=== PATIENT | male | born 1945 | race Caucasian/White ===

== ENCOUNTER 2019-11-03 17:01 | Inpatient (IN) ==
[2019-11-03 17:03] LABS: BLOOD TYPE ARTERIAL; METHB 1.7 % (0.0-1.5); O2(CT) 17.8 mL/dL (15.0-23.0); O2HB 90.5 % (95.0-99.0); PO2(98.6) 107 mmHg (60-100); SAMPLE BLOOD; SAO2 97.3 % (95.0-100.0); THB 13.9 g/dL (11.5-17.4)
[2019-11-03 17:18] LABS: BASO% 0.6 % (0.0-0.8); EOS# 0.61 X1000 (0.0-0.7); EOS% 3.4 % (0.0-10.0); HEMATOCRIT 43.9 % (42.0-52.0); IMM GRAN# 0.04 X1000 (0.0-0.04); IMM GRAN% 0.2 % (0.0-0.5); LYMPH# 6.07 X1000 (1.2-3.4); LYMPH% 33.4 % (20.5-51.1); MCH 28.1 PG (27-31); MCHC 29.6 g/dL (33-37); MCV 94.8 FL (81-99); MONO# 1.96 X1000 (0.11-0.59); MONO% 10.8 % (1.7-9.3); MPV 10.4 FL (7.4-10.4); NEUT# 9.37 X1000 (1.4-6.5); NEUT% 51.6 % (42.2-75.2); PLT 269 X1000 (130-400); RBC 4.63 XMIL (4.7-6.1); RDW 15.2 % (11.5-14.5); WBC 18.15 X1000 (4.8-10.8)
[2019-11-03 17:29] LABS: pH(98.6) 6.87 (7.35-7.45)
[2019-11-03 17:31] LABS: INR 0.98; PROTIME 13.5 Seconds (11.0-16.0)
[2019-11-03 17:31] LABS: PCO2(98.6) > 150 mmHg (35-45)
[2019-11-03 17:32] LABS: PTT 36.7 Seconds (22.3-41.8)
[2019-11-03 17:33] LABS: AGAP 12; ALBUMIN 4.2 g/dL (3.5-5.0); ALKALINE PHOSPHATASE 90 U/L (32-122); BUN 13 mg/dL (8-22); CHLORIDE 100 mmol/L (98-107); CK PROFILE 77 U/L (24-204); COSMO 289; CREATININE 0.9 mg/dL (0.7-1.2); ESTIMATED GFR > 60; GLUCOSE 274 mg/dL (70-104); GOT 47 U/L (10-34); GPT 25 U/L (10-44); SODIUM 140 mmol/L (136-145); TCO2 29 mmol/L (25-35); TOTAL PROTEIN 6.4 g/dL (6.3-8.3)
[2019-11-03 17:33] LABS: MODALITY RESUSC BAG
[2019-11-03 17:34] LABS: ALLEN TEST NO
[2019-11-03 17:36] LABS: URINE SOURCE CATH
[2019-11-03] MEDS ORDERED: NS 1,000 ML IV ONE ×2 (17:36→17:40)
--- NOTE | 2019-11-03 17:44 | Diag Imaging Result Doc PS360 ---
EXAM: CHEST-1 VIEW 11/03/2019 HISTORY: SOB TECHNIQUE: AP chest portable semierect at 1718 COMMENT: There are ill-defined opacities in both lower lobes which were not present on 10/14/2018. The heart size and pulmonary vascularity are within normal limits. IMPRESSION: Bibasilar pneumonia and/or pulmonary edema. Electronically signed by Weston Mitchell 11/03/2019 5:41 PM
[2019-11-03 17:51] LABS: BILIRUBIN URINE NEGATIVE (NEGATIVE); BLOOD URINE MODERATE (NEGATIVE); COLOR YELLOW; GLUCOSE URINE TRACE mg/dL (NEGATIVE); KETONE URINE TRACE mg/dL (NEGATIVE); TURBIDITY URINE HAZY (CLEAR)
[2019-11-03 17:52] LABS: LEUKOCYTES URINE NEGATIVE (NEGATIVE); NITRITE URINE NEGATIVE (NEGATIVE); PROTEIN URINE 200 mg/dL (NEGATIVE); UROBILINOGEN URINE NORMAL (NORMAL)
[2019-11-03] MEDS ORDERED: LEVAQUIN 750 MG/D5W 750 MG/150 ML IVPB IV ONE (17:53)
[2019-11-03 17:56] LABS: UR EPITHELIAL CELLS >10 /HPF (<10); URINE BACTERIA 2+ /HPF; URINE RBC 20-40 /HPF (<10)
[2019-11-03] MEDS ORDERED: VANCOMYCIN IV PER PHARMACY MISC SCH (18:00)
[2019-11-03] MEDS ORDERED: VANCOMYCIN 1 GM/NS 1 GM/250 ML IVPB IV ONE ×2 (18:00→20:00)
--- NOTE | 2019-11-03 18:40 | PROVIDER DOCUMENTATION ---
This chart was entered by Magali Jacobsen Scribe, acting as scribe for Loco Rodas MD. HPI-Respiratory General - General Chief Complaint: Shortness of Breath Stated Complaint: dyspnea Time Seen by Provider: 11/03/19 17:10 Source: EMS Allergies/Adverse Reactions: Patient Allergies Allergy/AdvReac Type Severity Reaction Status Date / Time No Known Allergies Allergy Verified 11/03/19 17:51 Home Medications: Home Medication List Medication Instructions Recorded Confirmed Last Taken Type Alprazolam [Xanax] 1 mg PO 4XDAY PRN PRN 08/24/15 11/05/19 11/03/19 12:00 History Aspirin [Aspirin EC] 81 mg PO DAILY 08/24/15 11/05/19 11/03/19 09:00 History Fluoxetine HCl [Prozac] 20 mg PO DAILY 08/24/15 11/05/19 11/03/19 09:00 History Lisinopril [Zestril] 2.5 mg PO DAILY 10/10/18 11/05/19 11/03/19 09:00 History Ipratropium/Albuterol INH 1 puff INH RTQ6H #1 inhaler 10/14/18 11/05/19 11/03/19 09:00 Rx [Combivent Respimat Inhaler] Albuterol 2.5MG/Ipratrop 0.5MG 3 ml INH Q4-6H PRN PRN #120 neb 11/05/19 Unknown Rx [Duoneb] Carvedilol [Coreg] 3.125 mg PO Q12HR #120 tab 11/05/19 Unknown Rx Doxycycline 100 mg PO BID #14 tab 11/05/19 Unknown Rx LISINOpril [Prinivil] 2.5 mg PO DAILY #120 tab 11/05/19 Unknown Rx Levofloxacin 500 mg PO DAILY #7 tab 11/05/19 Unknown Rx Prednisone 20 mg PO DAILY #5 tab 11/05/19 Unknown Rx Spironolactone 25 mg PO DAILY #120 tab 11/05/19 Unknown Rx - History of Present Illness-Resp Nature of Presenting Problem: 74 y/o male presents to ED with confusion and SOB. EMS reports he was found down in his home. Pt is alert and in respiratory distress. Quality of Pain: reports: none Severity in ED: reports: moderate Onset/Duration: reports: unsure Timing: reports: still present Context: reports: other Exposure: reports: unknown cause Cough Quality/Degree: reports: no cough Episode Frequency: other Current Respiratory Medication Therapy: Initiated see nurses note Modifying Factors: improves with: nothing Associated Symptoms: reports: shortness of breath, short of breath, other (confusion) Similar Symptoms Previously?: No Recently seen or treated by another doctor?: No Review of Systems - Adult - REVIEW OF SYSTEMS - ADULT Constitutional: reports: no symptoms reported Eyes: reports: no symptoms reported Ears, Nose, Mouth & Throat: reports: no symptoms reported Cardiovascular: reports: no symptoms reported Respiratory: reports: shortness of breath. denies: cough Gastrointestinal: reports: no symptoms reported Genitourinary: reports: no symptoms reported Musculoskeletal: reports: no symptoms reported Integumentary: reports: no symptoms reported Neurological: reports: other (confusion). denies: seizure Psychiatric: reports: no symptoms reported Endocrine: reports: no symptoms reported Hematologic/Lymphatic: reports: no symptoms reported Allergic/Immunologic: reports: no symptoms reported All Other Systems: Reviewed and Negative Past History - Adult - PAST MEDICAL HISTORY-ADULT Review of Records: reports: Old Records Reviewed, Nursing Assessment Review, Medications Reviewed Cardiovascular: reports: cardiac disease, HTN, hyperlipidemia Respiratory: reports: COPD Gastrointestinal: reports: GERD Musculoskeletal: reports: cancer (skin) Physical Exam-General - PHYSICAL EXAM-ADULT Initial Vital Signs Reviewed: Yes - CONSTITUTIONAL General Appearance: alert, slow to respond, other (confused; altered) - EYES Eyes: PERRL/EOMI, pink conjunctivae - HEAD, EARS, NOSE, MOUTH & THROAT HENMT: normocephalic/atraumatic, moist mucous membranes - NECK Neck: full range of motion - RESPIRATORY Respiratory: respiratory distress, decreased breath sounds, wheezing - CARDIOVASCULAR Cardiovascular: tachycardia - GASTROINTESTINAL (ABDOMEN) Abdominal Exam: normal bowel sounds, non tender, soft - MUSCULOSKELETAL Back Exam: normal inspection, no CVA tenderness, no vertebral tenderness Extremity: normal range of motion, non-tender - SKIN Integumentary: normal color, warm/dry - NEUROLOGIC Neurologic: other (confused; altered) - PSYCHIATRIC Psych/Mental Status: other (confused; altered) Progress - PLAN OF CARE/RESULTS Progress/Plan/Lab Results: Orders Category Date Time Status Admit - [facility] Routine AdmDCTranf 11/03/19 18:50 Active Activity - Up with Assistance ORDERED Care 11/05/19 08:00 Active Apply Mechanical Device [QM] ORDERED Care 11/03/19 18:50 Active Cardiac Monitoring DIRECTED Care 11/03/19 17:01 Completed DVT/PE Risk Assess/Protocol [QM] ORDERED Care 11/03/19 18:50 Completed FSBS/Accucheck Result AC + HS Care 11/03/19 18:50 Active [place] Cath Insertion ORDERED Care 11/03/19 17:02 Completed IV Insertion ORDERED Care 11/03/19 17:01 Completed IV Insertion ORDERED Care 11/03/19 18:49 Completed Intake and Output-Strict ORDERED Care 11/03/19 18:50 Active Notify MD of + Sepsis Screen NOW Care 11/03/19 17:01 Completed Notify Physician As Ordered Care 11/03/19 17:01 Active Saline Loc DIRECTED Care 11/03/19 18:50 Completed Turn, Cough and Deep Breathe Q4HR.AWAKE Care 11/03/19 18:50 Active Vital Signs Order Q 8-HR ASSESS Care 11/03/19 18:50 Completed Z-Document. for Tele Applied ORDERED Care 11/03/19 18:52 Completed NPO Diet 11/03/19 18:51 Completed CHEST-1 VIEW [RAD] Stat Exams 11/03/19 17:01 Completed ABG [RESP] Routine Lab 11/03/19 16:39 Completed ABG [RESP] Routine Lab 11/03/19 18:00 Ordered BLOOD CULTURE [BLDCUL] Stat Lab 11/03/19 17:15 Completed CBC WITH DIFF [HEME] Stat Lab 11/03/19 17:00 Completed CBC WITH NO DIFF [HEME] Routine Lab 11/04/19 04:00 Completed CK PROFILE [SP CHEM] Routine Lab 11/03/19 21:53 Completed CK PROFILE [SP CHEM] Stat Lab 11/03/19 17:00 Completed COMPREHENSIVE METABOLIC PANEL [CHEM] Routine Lab 11/04/19 04:00 Completed COMPREHENSIVE METABOLIC PANEL [CHEM] Stat Lab 11/03/19 17:00 Completed LACTATE, PLASMA [CHEM] Lab 11/03/19 20:15 Completed LACTATE, PLASMA [CHEM] Lab 11/03/19 21:53 Completed LACTATE, PLASMA [CHEM] Q3H Lab 11/03/19 17:00 Completed PROTIME WITH INR [COAG] Stat Lab 11/03/19 17:00 Completed PTT [COAG] Stat Lab 11/03/19 17:00 Completed TROPONIN T Stat Lab 11/03/19 17:00 Completed URINALYSIS W/POSS RFLX CULT [URINALYSIS] Stat Lab 11/03/19 17:35 Completed URINE CULTURE [RM] Routine Lab 11/03/19 17:35 Completed 0.9% Sodium Chloride Inj [Ns] 1,000 ml Med 11/03/19 17:36 Discontinued IV 999 mls/hr 0.9% Sodium Chloride Inj [Ns] 1,000 ml Med 11/03/19 17:40 Discontinued IV 999 mls/hr Levofloxacin 750 mg/D5w [Levaquin 750 mg/D5w] Med 11/03/19 17:53 Discontinued 750 mg in 150 ml IV NOW Levofloxacin [Levaquin] 750 mg Med 11/04/19 18:00 Discontinued 0.9% Sodium Chloride Inj [Ns] 150 ml IV Q24H Pharmacy Order [Vancomycin IV Per Pharmacy] Med 11/03/19 18:00 Discontinued 1 each MISC DIRECTED Vancomycin 1 gm/Ns Med 11/03/19 18:00 Discontinued 1 gm in 250 ml IV ONCE Vancomycin 1 gm/Ns Med 11/03/19 20:00 Discontinued 1 gm in 250 ml IV ONCE Vancomycin 1.25 gm Med 11/04/19 10:00 Discontinued 0.9% Sodium Chloride Inj [Ns] 250 ml IV Q18H BIPAP Stat Ot 11/03/19 17:34 Active Incentive Spirometer Q4HR.AWAKE Ot 11/03/19 21:00 Completed Incentive Spirometer Q4HR.AWAKE Ot 11/04/19 01:00 Completed Incentive Spirometer Q4HR.AWAKE Ot 11/04/19 05:00 Completed Incentive Spirometer Q4HR.AWAKE Ot 11/04/19 09:00 Completed Incentive Spirometer Q4HR.AWAKE Ot 11/04/19 13:00 Completed Incentive Spirometer Q4HR.AWAKE Ot 11/04/19 17:00 Completed Oxygen Device Stat Ot 11/03/19 17:01 Completed Peak Flow BID Ot 11/03/19 21:00 Completed Peak Flow BID Ot 11/04/19 09:00 Completed Telemetry [OM.EQ] Routine Ot 12/14/19 18:50 Active Transfer/Admit Order [TRANSFER] Routine Transfer 11/03/19 18:53 Completed Result Diagrams: 11/04/19 04:00 11/05/19 04:13 - CHANGE OF SHIFT REPORT (ED Provider) 1 Report Given and Care Transferred to:: [facility] lab meds placement bipap evaluation Departure - Departure Date of Disposition Decision: 11/04/19 Time of Disposition Decision: 00:30 DIAGNOSIS: Confusion, Respiratory distress Disposition: ADMITTED INPATIENT 09 Certified Medical Emergency: Emergent Condition: Serious - Critical Care Note This patient required my direct & personal management of CC.: No Attestation - Physician/ [place] Attestation Patient care was provided by Advanced Practice Provider:: No The physician spent face to face time with patient:: Yes Advanced Practice Provider documentation review:: Supervising physician onsite and consulted in the evaluation and care of this patient. The physician did have a face to face encounter with the patient. This chart was documented by the indicated scribe, (Magali Jacobsen Scribe) and accurately reflects the services I performed and decisions made by me, Loco Rodas MD, as attested by the provider's signature.
[2019-11-03 22:20] LABS: BE 3.5 mmoll (-2.0-2.0); BLOOD TYPE VENOUS; HCO3-(ACT) 26.9 mmoll (22-27); PO2(98.6) 30 mmHg (30-55); SAMPLE BLOOD; SAO2 66.7 % (40.0-85.0); pH(98.6) 7.29 (7.32-7.43)
[2019-11-03 22:21] LABS: PCO2(98.6) 66 mmHg (40-60)
[2019-11-04 04:48] LABS: AGAP 12; ALB/GLOB RATIO 1.9; ALBUMIN 3.7 g/dL (3.5-5.0); ALKALINE PHOSPHATASE 79 U/L (32-122); BUN 15 mg/dL (8-22); CALCIUM 8.6 mg/dL (8.8-10.2); CHLORIDE 102 mmol/L (98-107); COSMO 282; ESTIMATED GFR > 60; GLUCOSE 88 mg/dL (70-104); GOT 36 U/L (10-34); GPT 31 U/L (10-44); POTASSIUM 4.6 mmol/L (3.5-5.1); SODIUM 141 mmol/L (136-145); TCO2 27 mmol/L (25-35); TOTAL BILIRUBIN 0.38 mg/dL (0.20-1.00); TOTAL PROTEIN 5.6 g/dL (6.3-8.3)
--- NOTE | 2019-11-04 04:53 | HISTORY AND PHYSICAL ---
CHIEF COMPLAINT: Shortness of breath. HISTORY OF PRESENT ILLNESS: The patient is an elderly gentleman who presented to the hospital after having been found down confused at home. He was brought to the ER, found to be in severe respiratory distress and was significantly acidotic with a pCO2 elevated around 150. He was initially placed on BiPAP and has actually started improving very well. ALLERGIES: No known drug allergies. MEDICATIONS: Do not have an accurate medication list. He has a history of taking pain pills, Xanax and Cardizem. REVIEW OF SYSTEMS: As noted above. Positive increased work of breathing, cough, congestion, shortness of breath. Denies any recent illness. The majority of the history is per the family. PAST MEDICAL HISTORY: Significant for known coronary artery disease, hypertension, hyperlipidemia, COPD, history of skin cancer, chronic reflux. FAMILY HISTORY: Noncontributory. PHYSICAL EXAMINATION: VITAL SIGNS: Reviewed. Temperature 97.8 degrees, pulse 132, respiratory 26 and moderately labored, currently on BiPAP. HEENT: Normocephalic. NECK: Supple. CARDIOVASCULAR: Tachycardia. No appreciable murmurs. CHEST: Marked decreased breath sounds bilaterally. Positive wheezing. ABDOMEN: Soft, obese, nondistended. EXTREMITIES: Moves all extremities. NEUROLOGIC: No changes although unable to completely assess. LABORATORIES: WBCs 18, hemoglobin and hematocrit 13 and 43. Glucose 274, potassium 5.0. ASSESSMENT: 1. Acute respiratory failure, currently on BiPAP. 2. Leukocytosis. 3. Hyperglycemia in a patient with no previous history of diabetes. 4. Hypertension. 5. Supraventricular tachycardia. 6. Sepsis. PLAN: We are going to admit patient to the hospital, place him on vancomycin, Zosyn, breathing treatments, oxygen. We use sliding scale insulin as needed. Continue BiPAP. We are going to transfer him to [facility] when bed is available. cc: Clark Mccarthy MD
[2019-11-04 06:08] LABS: HEMATOCRIT 37.7 % (42.0-52.0); HEMOGLOBIN 11.6 g/dL (14.0-18.0); MCH 28.9 PG (27-31); MCHC 30.8 g/dL (33-37); MCV 93.8 FL (81-99); MPV 10.9 FL (7.4-10.4); RBC 4.02 XMIL (4.7-6.1); RDW 15.6 % (11.5-14.5); WBC 9.62 X1000 (4.8-10.8)
[2019-11-04] MEDS ORDERED: VANCOMYCIN 1.25 GM in NS 250 ML IV SCH (10:00)
[2019-11-04] MEDS: VANCOMYCIN 1.25 GM in NS 250 ML IV SCH (10:04)
[2019-11-04] MEDS ORDERED: DUONEB (A & A) INH PRN (10:41)
[2019-11-04] MEDS ORDERED: NS 1,000 ML IV SCH (10:45)
[2019-11-04] MEDS: PRINIVIL PO SCH (11:20)
[2019-11-04] MEDS: SOLU-MEDROL IV SCH ×2 (11:20→17:48)
--- NOTE | 2019-11-04 11:40 | PROGRESS NOTE ---
DATE: 11/04/2019 SUBJECTIVE: This morning, Mr. Benitez refers to be doing well. He wants the BiPAP off, and he said he would actually be a lot better at home. OBJECTIVE: Vital signs: Blood pressure is 139/81, pulse of 96, respirations 20, temperature is 99.1. Patient is saturating 98% on the BiPAP. General: Mr. Benitez is a 74-year-old elderly male. He is in bed, on BiPAP. HEENT: Mucosa is slightly dry. Anicteric. Acyanotic. Neck: Supple. Chest: Air entry is bilaterally reduced. I did not hear any crackles. No crepitations. No rhonchi. No wheezing. Cardiovascular: Regular rate and rhythm. No murmurs. Abdomen: Soft. Extremities: No pedal edema. CATERING SOUS CHEF: Patient is awake, alert, and oriented. LABORATORY DATA: WBC is down to 9.62, hemoglobin is 11.6, platelet count of 194,000. ABGs for most part are unremarkable. Troponins have been trended twice, unremarkable. ABGs showed pH of 6.87, PO2 of 107, carboxyhemoglobin of 5.40. A chest x-ray did show bibasilar pneumonia and/or pulmonary edema. ASSESSMENT: 1. Acute hypercarbic respiratory failure. 2. Chronic obstructive pulmonary disease in acute exacerbation. 3. History of congestive heart failure, ejection fraction of 35% to 40%. 4. History of coronary artery disease. 5. Status post pacemaker. 6. 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 The patient follows up with Dr. Henderson in [place]. 7. History of paroxysmal atrial fibrillation documented in his last admission on 10/14/2018. 8. Clinical volume depletion. For now, the patient is currently on IV antibiotics for the severe COPD exacerbation and suspected of bibasilar atelectasis/pneumonia. We have added steroids for the COPD exacerbation and will get Pulmonary Medicine to evaluate him. I understand Mr. Benitez was actually altered when he presented to the emergency room in [place]. Mentation is improved, and he actually wants to be discharged. I think we will wait for Pulmonary Medicine to evaluate him. I also think that he is going to need at least a day or 2 of acute care management before he is discharged. We will wait for Pulmonary Medicine evaluation today for further guidance in his management. cc: MD Clark Claudio MD MTDD
[2019-11-04] MEDS: DUONEB (A & A) INH SCH ×4 (15:50→23:35)
--- NOTE | 2019-11-04 17:58 | EKG Report ---
Test Performed on : 11/04/2019 5:20:08 PM Test Reason : Afib Blood Pressure : / mmHG Vent. Rate : 094 BPM Atrial Rate : 094 BPM P-R Int : 144 ms QRS Dur : 090 ms QT Int : 318 ms P-R-T Axes : 080 046 -78 degrees QTc Int : 397 ms Normal sinus rhythm. Septal infarct (cited on or before 13-OCT-2018) Abnormal ECG When compared with ECG of 13-OCT-2018 19:30, Sinus rhythm. has replaced Atrial fibrillation. Vent. rate has decreased BY 81 BPM Non-specific change in ST segment in Anterior leads Nonspecific T wave abnormality, worse in Inferior leads Nonspecific T wave abnormality now evident in Anterior leads Confirmed by Shiloh MARSHALL, Elie ([id number]) on 11/05/2019 8:19:30 AM
[2019-11-04] MEDS ORDERED: LEVAQUIN 750 MG in NS 150 ML IV SCH ×4 (18:00)
[2019-11-04] MEDS ORDERED: LASIX IV ONE (18:20)
[2019-11-04] MEDS: COREG PO SCH (20:36)
--- NOTE | 2019-11-05 01:36 | PULMONOLOGY CONSULTATION ---
DATE: 11/04/2019 REQUESTING PHYSICIAN: Dr. Mcclain. REASON FOR CONSULTATION: COPD with acute hypercarbic respiratory failure. HISTORY OF PRESENT ILLNESS: Mr. Benitez is a 74-year-old white male with severe COPD, chronic hypoxemic respiratory failure, chronic hypercapnic respiratory failure with ongoing tobacco use, who was last seen by this practitioner in October when he required intubation for intubation and mechanical ventilation. The patient was brought to the emergency room poorly responsive last evening with a pCO2 of 150. He was initiated on BiPAP with significant improvement. Once he became arousable to alert, he refused to wear the BiPAP. He has subsequently refused all additional arterial blood gases. He is now awake and alert. He reports he has to have pain medicines for chronic back pain. PAST MEDICAL HISTORY: 1. Severe COPD with ongoing tobacco use. 2. Chronic pain syndrome with chronic narcotic use. 3. Coronary artery disease status post stent placement. 4. Status post partial colon resection. 5. Status post pacemaker placement. 6. History of gastroesophageal reflux disease. 7. History of skin cancer. SOCIAL HISTORY: Continued tobacco use. He denies alcohol use. FAMILY HISTORY: Noncontributory to current presentation. REVIEW OF SYSTEMS: Noncontributory. He reports he feels back to his baseline. OBJECTIVE: Vital Signs: The patient has been afebrile for the last 24 hours. Blood pressure 149/93, heart rate 95, respiratory rate 20, oxygen saturation 95%. HEENT: Pupils are equal and reactive. Oropharynx is clear. Neck: Supple. Chest: Reveals prolonged expiratory phase, but no wheezing or rhonchi. Cardiac: S1-S2. Abdomen: Scaphoid and soft. Extremities: Reveal trace edema. LABORATORIES: Venous blood gas obtained last evening revealed a pH of 7.29, pCO2 of 66, PO2 of 30. His arterial blood gas yesterday afternoon revealed a pH of 6.87, pCO2 of greater than 150, and carboxyhemoglobin of 5.4. Chest x-ray reveals hyperinflation with mild increased markings in the lung bases. IMPRESSION: A 74-year-old with: 1. Acute hypoxemic respiratory failure on the background of chronic hypoxemic respiratory failure. 2. Acute hypercapnic respiratory failure on the background of chronic hypercapnic respiratory failure. 3. Mild pulmonary overload/pulmonary edema. 4. Ongoing tobacco use/nicotine addiction. 5. Chronic pain medication requirements/use. DISCUSSION: A 74-year-old with problems outlined above. The patient has had a rapid turnaround in 24 hours. With his presentation, I suspect that he has chronic CO2 retention and may have been pushed into further hypercapnic respiratory failure with pain medications. He will be very susceptible to pain medication and this will put him at risk for respiratory failure. He is not interested in smoking cessation and he is not interested in cutting back on his pain medications. RECOMMENDATIONS: 1. Continue current treatment regimen. 2. Encourage smoking cessation/discontinuation of tobacco. 3. Recommend weaning and discontinuing pain medications if possible. 4. Long-term prognosis is poor. cc: MD Clark Donato MD
[2019-11-05] MEDS: VANCOMYCIN 1.25 GM in NS 250 ML IV SCH ×2 (02:23→04:22)
[2019-11-05] MEDS: SOLU-MEDROL IV SCH (02:23)
[2019-11-05 05:39] LABS: AGAP 10; ALB/GLOB RATIO 1.9; ALBUMIN 3.8 g/dL (3.5-5.0); ALKALINE PHOSPHATASE 66 U/L (32-122); BUN 21 mg/dL (8-22); CALCIUM 8.6 mg/dL (8.8-10.2); CHLORIDE 104 mmol/L (98-107); COSMO 290; CREATININE 0.9 mg/dL (0.7-1.2); ESTIMATED GFR > 60; GLUCOSE 171 mg/dL (70-104); GOT 29 U/L (10-34); GPT 26 U/L (10-44); MAGNESIUM 1.7 mg/dL (1.5-2.7); PHOSPHORUS 1.9 mg/dL (2.7-4.5); POTASSIUM 4.2 mmol/L (3.5-5.1); SODIUM 142 mmol/L (136-145); TCO2 28 mmol/L (25-35); TOTAL BILIRUBIN 0.41 mg/dL (0.20-1.00); TOTAL PROTEIN 5.8 g/dL (6.3-8.3)
[2019-11-05] MEDS: DUONEB (A & A) INH SCH (07:44)
--- NOTE | 2019-11-05 07:46 | Diag Imaging Result Doc PS360 ---
EXAM: CHEST-PORTABLE INDICATION: abnormal exam TECHNIQUE: One view COMPARISON: 11/03/2019 FINDINGS: Ill-defined opacities at the lower lung zones bilaterally are approximately stable. No new consolidation is identified. Cardiac silhouette is stable. IMPRESSION: Essentially stable chest. Electronically signed by Grabiel Nava 11/05/2019 7:44 AM
[2019-11-05 07:49] VITALS: BP 142/89
[2019-11-05] MEDS: PRINIVIL PO SCH (08:40)
[2019-11-05] MEDS: COREG PO SCH (08:41)
--- NOTE | 2019-11-07 07:29 | DISCHARGE SUMMARY ---
ADMISSION DATE: 11/03/2019 DISCHARGE DATE: 11/05/2019 DISPOSITION: Home. FOLLOWUP: 1. Dr. Lopez. 2. Dr. Bowden. CONSULTATION DURING THIS ADMISSION: Pulmonary Medicine consulted. Patient was seen by Dr. Bowden. INVASIVE PROCEDURES DONE DURING THIS ADMISSION: None. IMAGING STUDIES OF SIGNIFICANCE: A chest x-ray initially showed bibasilar pneumonia and/or pulmonary edema. A repeat chest x-ray showed essentially stable findings. ADMISSION DIAGNOSES: 1. Acute respiratory failure. 2. Leukocytosis. 3. Hyperglycemia. 4. Hypertension. DIAGNOSIS AT THE TIME OF DISCHARGE: 1. Acute hypercarbic respiratory failure. 2. Severe chronic obstructive pulmonary disease with ongoing tobacco use, in exacerbation. 3. Chronic pain syndrome with chronic narcotic use. 4. History of congestive heart failure, ejection fraction of 35% to 40%. 5. History of coronary artery disease. 6. Status post pacemaker. 7. Dilated cardiomyopathy secondary to coronary artery disease. The patient follows up with Dr. Henderson in [place]. 8. History of paroxysmal atrial fibrillation. 9. Altered mental status on admission secondary to CO2 narcosis. PRESENTING COMPLAINT: Shortness of breath. HISTORY OF PRESENTING COMPLAINT: Mr. Benitez is a 74-year-old male who is known to have severe COPD, came to the emergency department because of shortness of breath and being found confused. Upon presentation, he was evaluated, found to have a pCO2 of 150. He was placed on a BiPAP and transferred to [facility] for higher level of care. He initially presented to [place]. HOSPITAL COURSE: Mr. Benitez improved remarkably with the BiPAP therapy. His mentation got completely cleared up. Unfortunately, he declined to wanting to do another ABG. He was started also on antibiotics, steroids and bronchodilation therapy. He did improve through the hospital course. He has been advised to quit smoking and also be extremely cautious with pain medication. He is not willing to do either of those practices. On the day of discharge, Mr. Benitez referred to be doing a lot better. Breathing has significantly improved, saturating well. We think he is in stable condition to be discharged. DISCHARGE PHYSICAL EXAMINATION: Vital signs: Vitals pressure is 142/89, pulse of 88, respirations 18, temperature 98 degrees. Respiratory: Ms. Benitez still has distant expiratory wheezing and some mild crackles posteriorly. We think, however, that Mr. Benitez is stable for discharge. He has been cautioned again against tobacco use and as well as opioid use. DISCHARGE MEDICATIONS: Include: 1. Alprazolam. 2. Fluoxetine 20 mg p.o. 3. Aspirin 81 mg p.o. daily. 4. Lisinopril 2.5 p.o. daily. 5. Doxycycline 100 mg b.i.d. 6. Levofloxacin 500 p.o. daily. 7. Spironolactone 25 mg p.o. daily. 8. Carvedilol 3.125 p.o. b.i.d. 9. Prednisone 20 mg p.o. daily. 10. Albuterol inhalers. TIME SPENT FOR DISCHARGE: 35 minutes. cc: MD Clark Claudio MD James E. Boyle, MD David Francis, MD
== END 2019-11-05 10:46 | disposition home or self-care (01) | DRG 189 ==
LOC: P.ED 17:01 → SUATTDRO 21:38 → P.EDIPHOLD 21:38 → 2N 11-04 01:27
PROVIDERS: ADMIT Family Medicine; ATTEND Internal Medicine